=== PATIENT | female | born 1975 | race Caucasian/White ===

== ENCOUNTER 2020-04-30 19:30 | Emergency (ER) | payer MEDICAID ==
--- NOTE | 2020-04-30 20:00 | EDM.PDOC ---
ED HPI GENERAL MEDICAL PROBLEM - General Chief Complaint: General Stated Complaint: R chest/R back pain Time Seen by Provider: 04/30/20 19:59 Source of Information: Reports: Patient History Limitations: Reports: No Limitations - History of Present Illness INITIAL COMMENTS - FREE TEXT/NARRATIVE: Desiree, 44-year-old female, presents with a day and a half of ongoing right-sided back and chest pain. She states this is at the level of the breast radiating from the back and that hot showers seem to improve the posterior aspect slightly. She has had a slight cough at times nonproductive in nature denying any shortness of breath. She denies any fever chills. Pain will induce nausea at times but is very minimal. Has been able to eat and drink with minimal difficulty, has had no change in bowel movements nor bladder. Daughter, who is in high school is known positive with testing done on the confirming COVID-19. She is been isolated and restricted as much as possible b ut in the same household. Significant stress increase due to the above as well as her 's recent passing. Onset: Other (Apr) Onset Date: 04/29/20 Onset Time: 08:00 Duration: Day(s):, Constant, Waxing/Waning Location: Reports: Chest, Back Quality: Reports: Ache, Pressure Severity: Severe Improves with: Reports: Heat Therapy Worsens with: Reports: Movement Context: Reports: Sick Contact - Related Data Allergies Allergy/AdvReac Type Severity Reaction Status Date / Time No Known Drug Allergies Allergy Cannot Verified 04/30/20 20:48 Remember Home Meds: Home Meds Ketorolac [Toradol] 10 mg PO TID PRN 5 Days #15 tab 04/30/20 [Rx] Past Medical History - Past Health History Medical/Surgical History: Denies Medical/Surgical History - Past Surgical History Head Surgeries/Procedures: Reports: None Cardiovascular Surgical History: Reports: None Respiratory Surgical History: Reports: None GI Surgical History: Reports: Cholecystectomy Female Surgical History: Reports: Section (X2) Neurological Surgical History: Reports: None Musculoskeletal Surgical History: Reports: None - History Comment History Comment: Denies any significant medical history or concerns. Had a periorbital cellulitis with conjunctivitis 2019 that cleared and has not seen healthcare since. Social & Family History - Family History Family Medical History: No Pertinent Family History - Tobacco Use Tobacco Use Status *Q: Never Tobacco User Tobacco Use Within Last Twelve Months: No - Tobacco Core Measures Tobacco Use/Smoking Within Last 30 Days: No - Caffeine Use Caffeine Use: Reports: Coffee - Alcohol Use Alcohol Use History: No - Recreational Drug Use Recreational Drug Use: No Drug Use in Last 12 Months: No ED ROS GENERAL - Review of Systems Review Of Systems: Comprehensive ROS is negative, except as noted in HPI. Constitutional: Reports: No Symptoms HEENT: Reports: No Symptoms ED EXAM, GENERAL - Physical Exam Exam: See Below Free Text/Narrative:: Alert, oriented, in no acute distress. HEENT is negative to discharge nor deformity. PERRLA no icterus no injection [place] moist mucous membranes with no erythema. No involvement the auditory canals or tympanic membranes. Neck is soft supple no lymphadenopathy no JVD no carotid bruit nor rigidity no jimbo. Thorax is somewhat raspy but overall clear no crackles nor wheezes are noted. Cardiac is distant S1-S2 with no appreciated murmur. Tenderness to the right posterior thorax and lateral with which she states a deeper pain to palpation. No anterior pain is induced with palpation. Abdomen is rotund soft bowel sounds are present no organomegaly is noted. Trace edema to the lower extremities with skin warm and dry. General Appearance: Alert, WD/WN, No Apparent Distress #1 Interpretation EKG Date: 04/30/20 Time: 20:51 Rhythm: NSR [place]: Normal P-Wave: Present QRS: Normal ST-T: Normal QT: Normal Comparison: NA - No Prior EKG Course - Orders/Labs/Meds Orders: Active Orders 24 hr Category Date Time Status EKG Documentation Completion [RC] ASDIRECTED Care 04/30/20 20:16 Active Abdomen Pelvis wo Cont [CT] Stat Exams 04/30/20 21:42 Ordered EKG 12 Lead [EK] Urgent Ther 04/30/20 20:16 Ordered Labs: Laboratory Tests 04/30/20 04/30/20 04/30/20 Range/Units 20:20 20:20 20:20 WBC 7.71 (5.00-10.00) 10^3/uL RBC 5.10 (3.80-5.50) 10^6/uL Hgb 11.2 L (12.0-16.0) g/dL Hct 37.5 (37.0-47.0) % MCV 73.5 L (82.0-92.0) fL MCH 22.0 L (27.0-31.0) pg MCHC 29.9 L (32.0-36.0) g/dL RDW 17.3 H (11.5-14.5) % Plt Count 354 (150-400) 10^3/uL MPV 9.5 (7.4-10.4) fL Immature Gran % (Auto) 0.1 (0.0-5.0) % Neut % (Auto) 62.9 (50.0-70.0) % Lymph % (Auto) 24.8 (20.0-40.0) % [place] % (Auto) 9.5 H (2.0-8.0) % Eos % (Auto) 1.8 (1.0-3.0) % Baso % (Auto) 0.9 (0.0-1.0) % Neut # (Auto) 4.85 (2.50-7.00) 10^3/uL Lymph # (Auto) 1.91 (1.00-4.00) 10^3/uL [place] # (Auto) 0.73 (0.10-0.80) 10^3/uL Eos # (Auto) 0.14 (0.10-0.30) 10^3/uL Baso # (Auto) 0.07 (0.00-0.10) 10^3/uL Immature Gran # (Auto) 0.01 (0.00-0.50) 10^3/uL Sodium 141 (136-145) mmol/L Potassium 3.6 (3.3-5.3) mmol/L Chloride 103 (98-115) mmol/L Carbon Dioxide 26.1 (21.0-32.0) mmol/L Anion Gap 15.5 H (5-15) mmol/L BUN 12 (6-25) mg/dL Creatinine 0.63 (0.51-1.17) mg/dL Est Cr Clr Drug Dosing TNP Estimated GFR (MDRD) > 60 mL/min Glucose 108 H (75 - 99) mg/dL Lactic Acid 1.5 (0.4-2.0) mmol/L Calcium 9.3 (8.7-10.3) mg/dL Total Bilirubin 0.4 (0.2-1.0) mg/dL AST 19 (15-37) U/L ALT 30 (12-78) U/L Alkaline Phosphatase 106 (46-116) IU/L Creatine Kinase 31 (26-276) U/L CK-MB (CK-2) 0.00 (0.00-4.30) ng/mL Troponin I 0.00 (0.00-0.070) ng/mL Total Protein 7.3 (6.4-8.2) g/dL Albumin 3.46 (3.00-4.80) g/dL Specimen Type Urine Color (YELLOW) Urine Appearance (CLEAR) Urine pH (5.0-9.0) Ur Specific [place] (1.005-1.030) Urine Protein (NEGATIVE) mg/dL Urine Glucose (UA) (NEGATIVE) mg/dL Urine Ketones (NEGATIVE) mg/dL Urine Occult Blood (NEGATIVE) Urine Nitrite (NEGATIVE) Urine Bilirubin (NEGATIVE) Urine Urobilinogen (0.2-1.0) E.U./dL Ur Leukocyte Esterase (NEGATIVE) Urine RBC (0-5) /HPF Urine WBC (0-5) /HPF Ur Epithelial Cells /LPF Urine Bacteria (NONE TO FEW) /HPF Urine Mucus (NEGATIVE) /LPF 04/30/20 Range/Units 20:40 WBC (5.00-10.00) 10^3/uL RBC (3.80-5.50) 10^6/uL Hgb (12.0-16.0) g/dL Hct (37.0-47.0) % MCV (82.0-92.0) fL MCH (27.0-31.0) pg MCHC (32.0-36.0) g/dL RDW (11.5-14.5) % Plt Count (150-400) 10^3/uL MPV (7.4-10.4) fL Immature Gran % (Auto) (0.0-5.0) % Neut % (Auto) (50.0-70.0) % Lymph % (Auto) (20.0-40.0) % [place] % (Auto) (2.0-8.0) % Eos % (Auto) (1.0-3.0) % Baso % (Auto) (0.0-1.0) % Neut # (Auto) (2.50-7.00) 10^3/uL Lymph # (Auto) (1.00-4.00) 10^3/uL [place] # (Auto) (0.10-0.80) 10^3/uL Eos # (Auto) (0.10-0.30) 10^3/uL Baso # (Auto) (0.00-0.10) 10^3/uL Immature Gran # (Auto) (0.00-0.50) 10^3/uL Sodium (136-145) mmol/L Potassium (3.3-5.3) mmol/L Chloride (98-115) mmol/L Carbon Dioxide (21.0-32.0) mmol/L Anion Gap (5-15) mmol/L BUN (6-25) mg/dL Creatinine (0.51-1.17) mg/dL Est Cr Clr Drug Dosing Estimated GFR (MDRD) mL/min Glucose (75 - 99) mg/dL Lactic Acid (0.4-2.0) mmol/L Calcium (8.7-10.3) mg/dL Total Bilirubin (0.2-1.0) mg/dL AST (15-37) U/L ALT (12-78) U/L Alkaline Phosphatase (46-116) IU/L Creatine Kinase (26-276) U/L CK-MB (CK-2) (0.00-4.30) ng/mL Troponin I (0.00-0.070) ng/mL Total Protein (6.4-8.2) g/dL Albumin (3.00-4.80) g/dL Specimen Type Urincc Urine Color Yellow (YELLOW) Urine Appearance Clear (CLEAR) Urine pH 5.5 (5.0-9.0) Ur Specific [place] >= 1.030 (1.005-1.030) Urine Protein Negative (NEGATIVE) mg/dL Urine Glucose (UA) Negative (NEGATIVE) mg/dL Urine Ketones Negative (NEGATIVE) mg/dL Urine Occult Blood Trace-intact H (NEGATIVE) Urine Nitrite Negative (NEGATIVE) Urine Bilirubin Negative (NEGATIVE) Urine Urobilinogen 0.2 (0.2-1.0) E.U./dL Ur Leukocyte Esterase Negative (NEGATIVE) Urine RBC 0-5 (0-5) /HPF Urine WBC 5-10 H (0-5) /HPF Ur Epithelial Cells Moderate H /LPF Urine Bacteria Few (NONE TO FEW) /HPF Urine Mucus Many H (NEGATIVE) /LPF Meds: Medications Discontinued Medications Generic Name Dose Route Start Last Admin Trade Name Yasmanyq PRN Reason Stop Dose Admin Ketorolac Tromethamine 60 mg 04/30/20 20:28 04/30/20 20:50 Toradol IM 04/30/20 20:29 60 mg ONETIME ONE Administration - Radiology Interpretation Free Text/Narrative:: Chest x-ray as well as abdominal pelvic CT are benign for any acute findings. - Re-Assessments/Exams Free Text/Narrative Re-Assessment/Exam: 04/30/20 21:51 Pain improved to a 5 after ketorolac injection with noted blood and mucus in her urine was significant concentration.>1.030 04/30/20 23:19 .Pain improved further possibly 3 to a 4 prior to the time of discharge after was given information of negative cardiac work-up as well as negative chest x- ray and negative CT of the abdomen pelvis. Departure - Departure Time of Disposition: 22:36 Disposition: Home, Self-Care 01 Condition: Good Clinical Impression: Right-sided chest wall pain Back pain Qualifiers: Back pain location: thoracic back pain Chronicity: acute Back pain laterality: right Qualified Code(s): M54.6 - Pain in thoracic spine Hematuria Qualifiers: Hematuria type: benign essential microscopic Qualified Code(s): R31.1 - Benign essential microscopic hematuria - Discharge Information *PRESCRIPTION DRUG MONITORING PROGRAM REVIEWED*: Not Applicable *COPY OF PRESCRIPTION DRUG MONITORING REPORT IN PATIENT SABRINA: Not Applicable Prescriptions: Ketorolac [Toradol] 10 mg PO TID PRN 5 Days #15 tab PRN Reason: Pain (Moderate 4-6) Instructions: Acute Back Pain, Adult, Chest Wall Pain, [id number], Pain Without a Known Cause, Hematuria, Adult Referrals: Laney Amador MD [Primary Care Provider] - Forms: ED Department Discharge Additional Instructions: You were given ketorolac 60 mg into the muscle this evening. 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 You need to increase your fluid intake as your urine is very concentrated. You should start showing improvement in the coloration concentration of your urine by tomorrow afternoon if you are drinking enough fluid. If this worsens over the course of the next few days consideration for clinic or return to the emergency department as needed. You need to follow-up next week if this is not significantly improved with the use of heat and the medication for follow-up reexamination, and the potential for physical therapy consultation. Call or return to the emergency department if significant worsening of discomfort or sharp pain should exist or follow-up with your clinic as able to schedule. - Problem List & Annotations (1) Back pain SNOMED Code(s): 032586758 Code(s): M54.9 - DORSALGIA, UNSPECIFIED Status: Acute Qualifiers: Back pain location: thoracic back pain Chronicity: acute Back pain laterality: right Qualified Code(s): M54.6 - Pain in thoracic spine (2) Right-sided chest wall pain SNOMED Code(s): 151297342, 555758085 Code(s): R07.89 - OTHER CHEST PAIN Status: Acute Priority: High (3) Hematuria SNOMED Code(s): 28198594 Code(s): R31.9 - HEMATURIA, UNSPECIFIED Status: Acute Priority: High Qualifiers: Hematuria type: benign essential microscopic Qualified Code(s): R31.1 - Benign essential microscopic hematuria - Problem List Review Problem List Initiated/Reviewed/Updated: Yes - My Orders Last 24 Hours: My Active Orders 04/30/20 20:16 EKG Documentation Completion [RC] ASDIRECTED EKG 12 Lead [EK] Urgent 04/30/20 21:42 Abdomen Pelvis wo Cont [CT] Stat - Assessment/Plan Last 24 Hours: My Active Orders 04/30/20 20:16 EKG Documentation Completion [RC] ASDIRECTED EKG 12 Lead [EK] Urgent 04/30/20 21:42 Abdomen Pelvis wo Cont [CT] Stat Plan: You were given ketorolac 60 mg into the muscle this evening. 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 You need to increase your fluid intake as your urine is very concentrated. You should start showing improvement in the coloration concentration of your urine by tomorrow afternoon if you are drinking enough fluid. If this worsens over the course of the next few days consideration for clinic or return to the emergency department as needed. You need to follow-up next week if this is not significantly improved with the use of heat and the medication for follow-up reexamination, and the potential for physical therapy consultation. Call or return to the emergency department if significant worsening of discomfort or sharp pain should exist or follow-up with your clinic as able to schedule.
[2020-04-30] MEDS: Ketorolac 60 MG/2 ML SDV IM ONE (20:50)
--- NOTE | 2020-04-30 20:52 | CR ---
[id number] RAD/RAD Chest PA or AP 1V EXAM: SINGLE VIEW CHEST. INDICATION: CHEST PAIN COMPARISON: NO PREVIOUS SIMILAR EXAM IS AVAILABLE FINDINGS: The lungs are clear The cardiomediastinal contour is moderately enlarged IMPRESSION: NO PNEUMONIA OR EDEMA. CARDIOMEGALY Humberto Mclean MD 04/30/206 Thank you for allowing us to participate in the care of your patient.
[2020-04-30 21:46] LABS: ANION GAP 15.5 mmol/L (5-15); CHLORIDE,CL 103 mmol/L (98-115); SODIUM,NA 141 mmol/L (136-145)
--- NOTE | 2020-05-01 07:31 | CT ---
[id number] CT/CT Abdomen Pelvis WO IV EXAM: ABDOMEN AND PELVIS CT WITHOUT CONTRAST INDICATION: BACK PAIN. HEMATURIA. COMPARISON: None. DISCUSSION: No renal/ureteral calculus or hydronephrosis. Scattered diverticula of the colon without evidence of diverticulitis. Cholecystectomy. Prominent uterine size. Unenhanced images of the liver, spleen, pancreas, adrenal glands, small bowel and appendix are unremarkable. No adenopathy, free air free fluid. IMPRESSION: 1. No acute findings. Alonso Chen MD 05/01/20 0730 Thank you for allowing us to participate in the care of your patient.
== END 2020-04-30 22:46 | disposition home or self-care (01) ==
LOC: KA.ED 19:30
DX: R07.89 Other chest pain (principal); M54.6 Pain in thoracic spine; R31.1 Benign essential microscopic hematuria
CPT/HCPCS: 36415; 71045; 74176; 80053; 81001; 82550; 82553; 83605; 84484; 85025; 96372; 99285; J1885; 93005; 99284